=== PATIENT | female | born 1985 | race Caucasian/White ===

== ENCOUNTER 2019-04-18 14:19 | Emergency (ER) | payer OTHER ==
[~2019-04-18] VITALS: Wt 61.2 kg
[~2019-04-18 14:19] MED LIST: AMOXICILLIN500 MG PO; ANAPROX DS550 MG PO; BACTRIM DS 8001 TA1 PO; BENTYL20 MG PO; CLINDAMYCIN HC300 MG PO; DOXYCYCLINE MO100 MG PO; FEOSOL300 MG PO; FLAGYL500 MG PO; FLEXERIL5 MG PO; IBU-6600 MG PO; IBUPROFEN600 MG PO; IRON FERROUS S325 MG PO; KEFLEX500 MG PO; MOTRIN800 MG PO; NORCO 325 MG-51 TAB PO; PRENATAL1 TA7 PO; PROTONIX20 MG PO; TRAMADOL HCL50 MG PO; TRIMOX500 MG PO; VICODIN 5/500 505 MG PO; VICODIN ES 7501 TAB PO; WYMOX500 MG PO; [UNRECOGNIZED DRUG - OTHER] TP
[2019-04-18] MEDS ORDERED: PREDNISONE20 M1 PO (16:06)
[2019-04-18] MEDS ORDERED: ROBAXIN500 M1 PO (16:06)
== END 2019-04-18 16:10 | disposition home or self-care (01) ==
LOC: ED 14:19
DX: G89.29 Other chronic pain (principal); M54.5 Low back pain; Z98.890 Other specified postprocedural states; W18.39XA Other fall on same level, initial encounter; Y93.89 Activity, other specified; Y92.098 Other place in other non-institutional residence as the place of occurrence of the external cause; Y99.8 Other external cause status

== ENCOUNTER 2019-11-28 16:37 | Emergency (ER) | payer OTHER ==
[~2019-11-28] VITALS: Ht 167.6 cm; Wt 61.2 kg
[~2019-11-28 16:37] MED LIST changes: +PREDNISONE20 M1 PO; +ROBAXIN500 M1 PO
[2019-11-28 17:44] LABS: HEMATOCRIT 45.8 % (37.0-47.0); MEAN CELL VOLUME 87.1 fl (81.0-99.0); MEAN CORPUSCULAR HGB 30.4 pg (27.0-31.0); MEAN CORPUSCULAR HGB CONC 34.9 g/dl (33.0-37.0); MEAN PLATELET VOLUME 12.3 fl (9.6-12.3); PLATELET COUNT AUTOMATED 136 10*3/uL (130-400); RED BLOOD COUNT 5.26 10*6/uL (4.10-5.10); RED CELL DISTRI WIDTH 13.6 % (0-14.5); WHITE BLOOD COUNT 10.2 10*3/uL (4.8-10.8)
[2019-11-28 18:00] LABS: ALBUMIN 3.8 gm/dl (3.1-4.5); ALKALINE PHOSPHATASE 44 U/L (45-117); BUN 16 mg/dl (7-24); CHLORIDE 106 mmol/L (98-107); LIPASE 119 U/L (73-393); POTASSIUM 3.4 mmol/L (3.5-5.1); SGOT/AST 14 IU/L (3-35); SGPT/ALT 20 U/L (12-78); SODIUM 139 mmol/L (136-145); TOTAL PROTEIN 7.9 gm/dL (6.4-8.2)
[2019-11-28 18:12] LABS: ATYPICAL LYMPHS 1 % (0-0); PLATELET SUFFICIENCY NORMAL (NORMAL); TOTAL CELLS COUNTED 100 #CELLS
== END 2019-11-28 19:02 | disposition home or self-care (01) ==
LOC: ED 16:37
PROVIDERS: Nurse Practitioner Family
DX: R51 Headache (principal); R11.10 Vomiting, unspecified

== ENCOUNTER 2020-03-13 23:25 | Emergency (ER) | payer OTHER ==
[~2020-03-13] VITALS: Ht 165.1 cm; Wt 59.0 kg
[2020-03-13] MEDS ORDERED: APRI 28 DAY TA1 EACH PO (23:46)
[2020-03-13] MEDS ORDERED: PREDNISONE20 M1 PO (23:55)
== END 2020-03-14 01:18 | disposition home or self-care (01) ==
LOC: ED 23:25
DX: L50.9 Urticaria, unspecified (principal); Z79.899 Other long term (current) drug therapy

== ENCOUNTER → 2021-10-30 | Outpatient (CLI) | payer OTHER ==
[~2021-10-30] MED LIST changes: +APRI 28 DAY TA1 EACH PO
== END | disposition home or self-care (01) ==
LOC: COVID19 16:45
PROVIDERS: ATTEND Podiatrist Foot & Ankle Surgery
DX: Z20.822 Contact with and (suspected) exposure to COVID-19 (principal)

== ENCOUNTER 2021-11-26 02:42 | Emergency (ER) | payer OTHER ==
[~2021-11-26] VITALS: Ht 165.1 cm; Wt 77.1 kg
== END 2021-11-26 07:57 | disposition home or self-care (01) ==
LOC: ED 02:42
DX: S80.12XA Contusion of left lower leg, initial encounter (principal); Z79.899 Other long term (current) drug therapy; X58.XXXA Exposure to other specified factors, initial encounter; Y93.89 Activity, other specified; Y92.89 Other specified places as the place of occurrence of the external cause; Y99.8 Other external cause status

== ENCOUNTER 2022-08-25 21:28 | Emergency (ER) | payer OTHER ==
[~2022-08-25] VITALS: Ht 165.1 cm; Wt 79.4 kg
[2022-08-26 00:01] LABS: HEMATOCRIT 36.4 % (37.0-47.0); MEAN CELL VOLUME 89.7 fl (81.0-99.0); MEAN CORPUSCULAR HGB 29.6 pg (27.0-31.0); MEAN PLATELET VOLUME 12.1 fl (9.6-12.3); PLATELET COUNT AUTOMATED 144 10*3/uL (130-400); RED BLOOD COUNT 4.06 10*6/uL (4.10-5.10); RED CELL DISTRI WIDTH 15.1 % (0-14.5); WHITE BLOOD COUNT 18.1 10*3/uL (4.8-10.8)
[2022-08-26 00:06] LABS: MANUAL DIFF REFLEX YES
[2022-08-26 00:19] LABS: ALKALINE PHOSPHATASE 51 U/L (45-117); BUN 12 mg/dl (7-24); CHLORIDE 105 mmol/L (98-107); CREATININE 0.94 mg/dL (0.55-1.02); POTASSIUM 3.9 mmol/L (3.5-5.1); SGOT/AST 10 IU/L (3-35); SGPT/ALT 14 U/L (12-78); SODIUM 136 mmol/L (136-145); TOTAL PROTEIN 7.2 gm/dL (6.4-8.2)
[2022-08-26 00:33] LABS: BASOPHILS 1 % (0-1); TOTAL CELLS COUNTED 100 #CELLS
[2022-08-26 00:34] LABS: PLATELET SUFFICIENCY NORMAL (NORMAL)
[2022-08-26 01:10] LABS: BILIRUBIN Negative (Negative); BLOOD Trace-Lysed (Negative); CLARITY Cloudy (Clear); COLOR Yellow (Yellow); GLUCOSE Negative (Negative); KETONE Negative (Negative); LEUKO ESTERASE 1+ (Negative); NITRITE Negative (Negative); PH 6.5 (4.5-8.0); SPECIFIC GRAVITY 1.025 (1.001-1.030)
[2022-08-26 01:41] LABS: BACTERIA 4+; EPITHELIAL CELLS 41-50; WBC 16-20 wbc/hpf (0-5)
[2022-08-26] MEDS ORDERED: LEVOFLOXACIN750 M2 PO (02:38)
== END 2022-08-26 03:40 | disposition home or self-care (01) ==
LOC: ED 21:28
PROVIDERS: Emergency Medicine
DX: N39.0 Urinary tract infection, site not specified (principal); Z20.822 Contact with and (suspected) exposure to COVID-19; F17.200 Nicotine dependence, unspecified, uncomplicated; Z79.899 Other long term (current) drug therapy

== ENCOUNTER 2022-11-23 14:11 | Emergency (ER) | payer OTHER ==
[~2022-11-23 14:11] MED LIST changes: +LEVOFLOXACIN750 M2 PO
[2022-11-23 15:22] LABS: URINE AMPHETAMINES Negative (1000ng/ml); URINE BARBITURATES Negative (200ng/ml); URINE BENZODIAZEPINES Positive (200ng/ml); URINE CANNABINOIDS (THC) Positive (50ng/ml); URINE COCAINE Positive (300ng/ml); URINE METHADONE Negative (300ng/ml); URINE OPIATES Negative (300ng/ml); URINE PHENCYCLIDINE Negative (25ng/ml)
[2022-11-23 15:27] LABS: BILIRUBIN Negative (Negative); BLOOD Negative (Negative); CLARITY Clear (Clear); COLOR Yellow (Yellow); GLUCOSE Negative (Negative); KETONE Negative (Negative); PH 5.5 (4.5-8.0); UROBILINOGEN 0.2 E.U./dl (0.0-1.0)
[2022-11-23 15:28] LABS: LEUKO ESTERASE Negative (Negative); NITRITE Negative (Negative)
[2022-11-23 15:34] LABS: BACTERIA TRACE; MUCOUS TRACE; RBC 0-2 rbc/hpf (0-2); WBC 0-2 wbc/hpf (0-5)
[2022-11-23 15:34] LABS: BASO # 0.1 10*3/uL (0.0-0.1); BASO % 0.6 % (0.0-1.0); EOS # 0.2 10*3/uL (0.0-0.4); EOS % 2.6 % (1.0-4.0); LYMPH # 2.4 10*3/uL (1.3-4.4); LYMPH % 28.7 % (27.0-41.0); MEAN CELL VOLUME 87.2 fl (81.0-99.0); MEAN CORPUSCULAR HGB 28.7 pg (27.0-31.0); MEAN CORPUSCULAR HGB CONC 32.9 g/dl (33.0-37.0); MEAN PLATELET VOLUME 11.7 fl (9.6-12.3); MONO # 0.6 10*3/uL (0.1-1.0); MONO % 7.5 % (3.0-9.0); NEUT # 5.1 10*3/uL (2.3-7.9); NEUT % 60.5 % (47.0-73.0); PLATELET COUNT AUTOMATED 155 10*3/uL (130-400); RED CELL DISTRI WIDTH 13.7 % (0-14.5); WHITE BLOOD COUNT 8.4 10*3/uL (4.8-10.8)
[2022-11-23 15:53] LABS: ACT PARTIAL THROMBO TIME 24.9 SECONDS (20.0-32.1); INTERNATIONAL NORM RATIO 0.9 (2.0-3.5)
[2022-11-23 16:46] LABS: ALKALINE PHOSPHATASE 61 U/L (46-116); BETA-HCG, QUANT < 3.0 mIU/mL (0-10); BUN 10 mg/dl (9-23); CHLORIDE 102 mmol/L (98-107); SGPT/ALT 22 U/L (10-49); TOTAL PROTEIN 7.2 gm/dL (6.0-8.0)
[2022-11-23 16:57] LABS: ETHYL ALCOHOL < 3.0 mg/dl (<3)
== END 2022-11-23 20:04 | disposition home or self-care (01) ==
LOC: ED 14:11
PROVIDERS: Emergency Medicine
DX: G47.10 Hypersomnia, unspecified (principal); F19.90 Other psychoactive substance use, unspecified, uncomplicated; Z79.899 Other long term (current) drug therapy